=== PATIENT | male | born 1970 | race African-American/Black ===

== ENCOUNTER 2023-08-12 13:40 | Inpatient (IN) ==
[2023-08-12] MEDS: Lactated Ringers 1000 ml BAG 1,000 ML IV ONE (14:13)
[2023-08-12] MEDS: NS 0.9% 1000 ml BAG 1,000 ML IV ONE ×3 (14:14→17:48)
[2023-08-12 14:20] LABS: ABS Lymphocytes 0.8 10^3/uL (1.0-4.8); ABS Monocytes 0.1 10^3/uL (0.0-1.1); ABS Neutrophils 10.2 10^3/uL (1.5-7.6); ABS Nucleated RBC 0.01 10^3/ul; Eosinophil % 0.1 %; Hematocrit 46.2 % (38-53); Hemoglobin 15.8 g/dL (13.2-16.3); Lymphocyte % 7.5 %; Mean Corpuscular Hemoglobin 30.7 pg (27-33); Mean Corpuscular Hgb Conc 34.2 g/dL (31-36); Mean Corpuscular Volume 89.8 fL (80-97); Nucleated Red Blood Cells % 0.1 %/100WBC (0.0-0.8); Platelet Count 284 10^3/uL (150-450); Red Blood Count 5.14 10^6/uL (4.06-5.63); Red Cell Distribution Width 13.6 % (12-17); White Blood Count 11.3 10^3/uL (3.6-10.2)
[2023-08-12 14:29] LABS: INR 0.97 (0.83-1.13)
[2023-08-12 14:39] LABS: Albumin 5.2 g/dL (3.2-5.2); Albumin/Globulin Ratio 1.6 (1-3); Calcium 10.7 mg/dL (8.6-10.3); Creatinine, Serum 1.15 mg/dL (0.67-1.17); Globulin 3.3 g/dL (2-4); Potassium 4.3 mmol/L (3.5-5.0); Total Bilirubin 0.4 mg/dL (0.2-1.0); Total Protein 8.5 g/dL (6.4-8.9); eGFR CKD-EPI 77.5 (>60)
[2023-08-12] MEDS ORDERED: Dextrose 50% Syringe 50 ml 25 GM/50 ML SYRINGE IV PUSH PRN ×2 (15:05→16:18)
[2023-08-12 15:50] LABS: High Sensitivity Troponin 1 Hr 5 pg/mL (<20)
[2023-08-12 16:25] LABS: Alcohol, S < 13 mg/dL (<13); Magnesium 1.8 mg/dL (1.9-2.7)
[2023-08-13 00:04] LABS: C Reactive Protein 12.55 mg/L (<8.01)
[2023-08-13] MEDS: Thiamine 100 MG/ML 2 ml VIAL (200 mg) IM ONE (01:32)
[2023-08-13] MEDS: Magnesium Sulfate IV 1GM/100ML 1 GM/100 ML BAG IV ONE (01:54)
[2023-08-13] MEDS: Calcium Carb (TUMS) 500 mg CHEW TAB PO PRN (02:15)
[2023-08-13] MEDS ORDERED: Dextrose 50% Syringe 50 ml 25 GM/50 ML SYRINGE IV PUSH PRN ×2 (02:23→16:57)
[2023-08-13 03:27] LABS: Urine Appearance Clear; Urine Bilirubin Negative (Negative); Urine Blood Negative (Negative); Urine Color Light-Yellow; Urine Glucose 4+ (>=1000 mg/dL) (Negative); Urine Ketones Trace (Negative); Urine Nitrite Negative (Negative); Urine Protein Negative (Negative); Urine Specific Gravity 1.023 (1.002-1.030); Urine Urobilinogen Negative (Negative)
[2023-08-13 03:31] LABS: Urine Benzodiazepine Screen None Detected (None Detect); Urine Cannabinoids Screen Presumptive Positive (None Detect); Urine Opiates Screen None Detected (None Detect)
[2023-08-13 05:43] LABS: ABS Lymphocytes 1.2 10^3/uL (1.0-4.8); ABS Monocytes 0.7 10^3/uL (0.0-1.1); ABS Neutrophils 15.2 10^3/uL (1.5-7.6); Hematocrit 42.2 % (38-53); Hemoglobin 14.3 g/dL (13.2-16.3); Lymphocyte % 6.9 %; Mean Corpuscular Hemoglobin 30.4 pg (27-33); Mean Corpuscular Volume 89.5 fL (80-97); Mean Platelet Volume 9.2 fL (7.5-11.2); Platelet Count 271 10^3/uL (150-450); Red Blood Count 4.71 10^6/uL (4.06-5.63); Red Cell Distribution Width 13.4 % (12-17); White Blood Count 17.1 10^3/uL (3.6-10.2)
[2023-08-13 06:10] LABS: Albumin 4.6 g/dL (3.2-5.2); Albumin/Globulin Ratio 1.5 (1-3); Calcium 9.5 mg/dL (8.6-10.3); Creatinine, Serum 0.96 mg/dL (0.67-1.17); Magnesium 2.1 mg/dL (1.9-2.7); Potassium 4.2 mmol/L (3.5-5.0); Total Bilirubin 0.5 mg/dL (0.2-1.0); Total Protein 7.6 g/dL (6.4-8.9); eGFR CKD-EPI 96.3 (>60)
[2023-08-13 06:24] LABS: TSH Ultra Thyroid Stim Horm 0.64 mcIU/mL (0.34-5.60)
[2023-08-13 06:59] LABS: Venous Bicarbonate HCO3 24.8 mmol/L (24-28)
[2023-08-13] MEDS: Insulin GLARGINE 100 un/ml 10 ml VIAL SUBCUT SCH ×2 (08:30→22:23)
[2023-08-13] MEDS: Metoprolol Tartrate 5 mg VIAL 5 ml VIAL (1 mg/ml) IV ONE ×3 (08:32→11:27)
[2023-08-13] MEDS: Multivitamins/Minerals TAB PO SCH (08:36)
[2023-08-13] MEDS: Lactated Ringers 1000 ml BAG 1,000 ML IV ONE (08:38)
[2023-08-13] MEDS ORDERED: Insulin GLARGINE 100 un/ml 10 ml VIAL SUBCUT SCH (09:00)
[2023-08-13 17:13] LABS: Glucose Confirmatory 474 mg/dL (70-100)
[2023-08-13] MEDS: Metoprolol Tartrate 5 mg VIAL 5 ml VIAL (1 mg/ml) IV PRN (18:48)
[2023-08-14 06:58] LABS: ABS Lymphocytes 1.6 10^3/uL (1.0-4.8); ABS Neutrophils 14.3 10^3/uL (1.5-7.6); ABS Nucleated RBC 0.01 10^3/ul; Hematocrit 42.4 % (38-53); Hemoglobin 14.6 g/dL (13.2-16.3); Lymphocyte % 9.4 %; Mean Corpuscular Hemoglobin 30.7 pg (27-33); Mean Corpuscular Hgb Conc 34.3 g/dL (31-36); Mean Corpuscular Volume 89.6 fL (80-97); Mean Platelet Volume 9.1 fL (7.5-11.2); Nucleated Red Blood Cells % 0.1 %/100WBC (0.0-0.8); Platelet Count 272 10^3/uL (150-450); Red Blood Count 4.74 10^6/uL (4.06-5.63); Red Cell Distribution Width 13.5 % (12-17); White Blood Count 16.9 10^3/uL (3.6-10.2)
[2023-08-14 07:36] LABS: Calcium 9.5 mg/dL (8.6-10.3); Creatinine, Serum 1.03 mg/dL (0.67-1.17); Magnesium 2.2 mg/dL (1.9-2.7); Potassium 4.8 mmol/L (3.5-5.0); eGFR CKD-EPI 88.5 (>60)
[2023-08-14] MEDS ORDERED: Midazolam 5 mg/5 ml VIAL 1 mg/ml 5 ml VIAL (5 mg) ONE ×2 (08:16→08:18)
[2023-08-14] MEDS ORDERED: fentaNYL 100 mcg/2 ml 50 MCG/ML VIAL ONE (08:16)
[2023-08-14] MEDS ORDERED: Naloxone 0.4 mg VIAL 0.4 mg/ml 1 ml VIAL ONE (08:17)
[2023-08-14] MEDS ORDERED: Flumazenil 0.5 mg/5 ml 0.1 MG/ML 5 ml VIAL ONE (08:17)
[2023-08-14] MEDS: Midazolam 10 mg/10 ml VIAL 1 mg/ml 10 ml VIAL (10 mg) IV SLOW PU ONE (09:55)
[2023-08-14] MEDS: fentaNYL 100 mcg/2 ml 50 MCG/ML VIAL IV SLOW PU ONE (09:55)
[2023-08-14] MEDS: NS 0.9% 1000 ml BAG 1,000 ML IV ONE (09:55)
[2023-08-14] MEDS: Insulin GLARGINE 100 un/ml 10 ml VIAL SUBCUT SCH (21:37)
[2023-08-14 21:56] LABS: Glucose Confirmatory 491 mg/dL (70-100)
[2023-08-15 06:37] LABS: ABS Lymphocytes 2.3 10^3/uL (1.0-4.8); ABS Monocytes 1.3 10^3/uL (0.0-1.1); ABS Neutrophils 11.9 10^3/uL (1.5-7.6); ABS Nucleated RBC 0.01 10^3/ul; Eosinophil % 0.1 %; Hematocrit 40.7 % (38-53); Hemoglobin 13.9 g/dL (13.2-16.3); Mean Corpuscular Hemoglobin 30.6 pg (27-33); Mean Corpuscular Hgb Conc 34.1 g/dL (31-36); Mean Corpuscular Volume 89.6 fL (80-97); Mean Platelet Volume 9.2 fL (7.5-11.2); Platelet Count 270 10^3/uL (150-450); Red Blood Count 4.54 10^6/uL (4.06-5.63); Red Cell Distribution Width 13.6 % (12-17); White Blood Count 15.7 10^3/uL (3.6-10.2)
[2023-08-15 06:51] LABS: Calcium 9.5 mg/dL (8.6-10.3); Creatinine, Serum 1.05 mg/dL (0.67-1.17); Potassium 4.4 mmol/L (3.5-5.0); eGFR CKD-EPI 86.5 (>60)
[2023-08-15 22:45] LABS: Glucose Confirmatory 412 mg/dL (70-100)
[2023-08-16 13:52] VITALS: BP 140/90
== END 2023-08-16 14:15 | disposition home or self-care (01) | DRG 201 ==
LOC: EDHOLD 13:40 → ED 13:40 → SUATTDRO 22:01 → MEDTELE 22:44
PROVIDERS: ADMIT Internal Medicine; ATTEND Hospitalist